=== PATIENT | female | born 1955 | race Caucasian/White ===

== ENCOUNTER → 2024-04-09 12:13 | Outpatient (REF) | payer MEDICARE, SELFPAY | LOC: HWRAD 12:13 | PROVIDERS: ATTENDING PHYSICIAN Internal Medicine Geriatric Medicine; REFERRING PHYSICIAN Internal Medicine Cardiovascular Disease | DX: E78.01 Familial hypercholesterolemia (principal); E78.00 Pure hypercholesterolemia, unspecified | CPT/HCPCS: 75571 ==

== ENCOUNTER → 2024-07-05 10:06 | Outpatient (REF) | payer MEDICARE, SELFPAY | LOC: HWRAD 10:06 | PROVIDERS: ATTENDING PHYSICIAN Internal Medicine Geriatric Medicine; REFERRING PHYSICIAN Advanced Practice Midwife | DX: Z12.31 Encounter for screening mammogram for malignant neoplasm of breast (principal); Z78.0 Asymptomatic menopausal state | CPT/HCPCS: 77063; 77067; 77080 ==

== ENCOUNTER → 2024-09-22 15:32 | Outpatient (REF) | payer MEDICARE, SELFPAY | LOC: RAD 15:32 | PROVIDERS: ATTENDING PHYSICIAN Internal Medicine Geriatric Medicine | DX: M79.641 Pain in right hand (principal); M25.531 Pain in right wrist | CPT/HCPCS: 73110; 73130 ==

== ENCOUNTER 2025-04-27 08:49 | Emergency (ER) | payer MEDICARE, SELFPAY ==
[2025-04-27 08:50] VITALS: BP 176/110
[2025-04-27 09:04] VITALS: BMI 20.3
--- NOTE | 2025-04-27 09:32 | EDRN ---
Bilateral knee abrasions cleansed w/ saline and double antibiotic ointment to mela knees. Three tiny abrasions to R hand cleanse w/ double antibiotic ointment to areas. R index finger tip and nail bed cleansed w/ saline only. ? nail involvement.
--- NOTE | 2025-04-27 09:39 | EDRN ---
Dr. Bernardo in room w/ pt
[2025-04-27] MEDS: LET TOPICAL ANESTHETIC GEL 3 ML TOPICAL (09:45)
--- NOTE | 2025-04-27 09:46 | ED.GENMED ---
History of Present Illness
General
Chief Complaint: Fall
Source: patient and spouse
Exam Limitations: none
Time Seen by Provider: 04/27/25 09:37
Nursing documentation reviewed up to this point in time: agreed with
History of Present Illness
History of Present Illness:
69-year-old female with a past medical history of hyperlipidemia who presents to the emergency room with her for evaluation after a fall. Patient was playing pickle ball and tripped and fell forward. She struck her head on the ground and
also injured her right pinky finger. She says she did not pass out. She complains of a mild headache and has a large laceration to the left forehead. She has some bruising around the left eye but denies any eye pain. She denies any significant
neck pain. She denies any back pain or rib pain. Denies any abdominal pain. She says she has some pain in the right fifth digit but denies any wrist, elbow, shoulder pain bilaterally. She has a minor abrasion of the left knee but denies any
significant pain and has been ambulatory. She is on aspirin but no other blood thinners. She says her tetanus is up-to-date within the past 5 years after accidentally lacerating her finger with a knife a few years ago.
Past History
Past History
ED Past Medical History: Hypercholesterolemia
Social History
Personal:
Review of Systems
Review of Systems
All Other Systems: ROS reviewed and negative except as documented in HPI and ROS
Respiratory: Denies trouble breathing
Cardiac: Denies chest pain
ABD/GI: Denies abdominal pain or nausea
Musculoskeletal: Reports other (Finger pain); Denies neck pain or back pain
Neurological: Reports headache; Denies dizzy
Phy Exam
Physical Exam
Physical Exam:
General: Awake, alert, oriented x3; holding ice pack on her left forehead, not in any distress
Head: Normocephalic, patient has bruising and swelling to the left forehead and periorbital region and she has a large laceration approximately 6 cm linear just above the left eyebrow
Eyes: Conjunctiva normal, EOMI, pupils equal round reactive to light bilaterally; periorbital bruising on the left as above
Throat: Airway intact, handling secretions
Neck: Trachea midline, no midline cervical spine tenderness
Back: No tenderness in thoracic or lumbar spine
Lungs: Breathing comfortably with no distress
Heart: Regular rate; no chest wall tenderness
Abd: Soft, non distended, nontender
Neuro: Cranial nerves grossly intact, speech fluid, motor and sensory grossly intact
Skin: Laceration to the forehead as above; she has superficial scratch just inferior to the left eye as well; she has a minor abrasion to the left knee and minor abrasion to the dorsum of the left fifth pinky
Extremities: Skin findings as above; on exam of the legs no significant tenderness, moving all large joints of the legs through full range of motion without pain; with specific attention to the left knee where there is a minor abrasion she has no
joint effusion or joint line tenderness; on exam of the right hand she has some mild tenderness along the right fifth digit near the DIP joint but she is able to make a fist with the right hand including full flexion of the fifth digit with only
mild pain; no tenderness in the wrist, elbow, shoulder on the right, left upper extremity atraumatic; all extremities are warm and well-perfused
Scores
Heart Failure Risk
Heart Failure Risk Score: Not Applicable
Heart Score for Chest Pain Patients
STEMI patient?: Not applicable
Withdrawal Assessment of Alcohol
Withdrawal Assessment Completed?: Not applicable
Course
Orders/Labs/Results
Orders:
Orders
04/27/25 09:43
Acetaminophen [Tylenol] 650 mg PO NOW STA
Lidocaine/Epinephrine/Tetracai [Let Topical Anesthetic Gel] 3 ml TOPICAL NOW STA
04/27/25 09:44
CT Cervical Spine W/o Iv Contr Urgent
Comment:
Reason For Exam: fall with frontal trauma
CT Facial Bones W/o Iv Contras Urgent
Comment:
Reason For Exam: fall with frontal trauma; left eye swelling/bruise
CT Head W/o Iv Contrast Urgent
Comment:
Reason For Exam: fall with frontal trauma
CR Finger(s)/thumb Min 2 Vw Rt Urgent
Comment:
Reason For Exam: right 5th finger pain s/p fall
04/27/25 09:45
Lidocaine/Epinephrine/Tetracai [Let Topical Anesthetic Gel] 3 ml .ROUTE .[facility]
Vital Signs
Initial and Last Documented VS:
Initial Vital Signs
Temp Pulse Resp BP Pulse Ox
36.8 C 98 16 176/110 98
04/27/25 08:50 04/27/25 08:50 04/27/25 08:50 04/27/25 08:50 04/27/25 08:50
Last Documented Vital Signs
Temp Pulse Resp BP Pulse Ox
36.8 C 86 16 160/97 98
04/27/25 08:50 04/27/25 10:34 04/27/25 10:34 04/27/25 10:34 04/27/25 10:34
Procedures
Laceration Closure
Left Forehead:
Status of Wound: clean
Size of Wound in cm: 6
Description of Wound Edges: sharp
Preparation: cleaned with saline
Anesthesia: Topical-LET
Revision/Debridement: minor revision
Type of Closure: layered closure, interrupted sutures and running stitch
Skin Closure Material: 6-0 nylon (4) and other (6-0 moncryl x1 running subcuticular )
Number of sutures: 5
Additional information:
Complex laceration repair with minor revision, irrigation with saline; running subcuticular stitch with 6-0 Monocryl followed by 4 simple interrupted surface sutures for better approximation, Steri-Strips applied
MDM/Problems Addressed
Differential Diagnosis Includes:
Head strike: Concussion, brain bleed, forehead contusion
Finger pain: Fracture, contusion, sprain
MDM/Problems Addressed:
69-year-old female presents to the ER for evaluation after a fall while playing pickle ball. She did strike her head and sustained bruising and large laceration to the left forehead. Only other injury is some pain in the right fifth digit.
Tetanus up-to-date. Vitals and exam as above. She is on aspirin but fortunately no other blood thinners. Will plan to check CT of the head, cervical spine, facial bones. Check x-ray of the right hand/fifth finger. Will need to irrigate and
repair laceration. Although she does have an abrasion to the knee she has no pain, no swelling, no tenderness, full range of motion�no indication for emergent knee x-ray. No other apparent injuries on secondary survey. Will provide some Tylenol
for mild headache. Reassess after the above.
CT head shows no acute abnormality, CT cervical spine no acute abnormality. CT of the face shows minor left nasal fracture. Will start prophylactic antibiotic. X-ray of the pinky shows no fracture. Abrasions were cleaned, laceration repaired as
documented in procedure note. Stable for discharge. ENT referral for nasal fracture and follow-up for suture removal discussed. All questions answered.
Acute Exacerbation and/or Progression of Chronic Illness:
Acutely hypertensive--likely stress related in the setting of acute trauma�no indication for emergent antihypertensives at this point
Acute Exacerbation and/or Progression of Chronic Illness: HTN
*Radiology
Radiology exam reviewed: preliminary read by ED provider and radiology read reviewed
*Pulse Oximetry
SaO2: 98
Oxygen Mode of Delivery: Room air
Patient hypoxic: no (98%)
*Critical Care Note
Total Time (30-74mins, 75-104mins- exclusive of procedures): Not Applicable
Data Reviewed
Source: patient and spouse
Further Testing Considered But Not Given:
Considered x-ray of the knee
ED Attending Note
-
Portions of this chart may have been created with voice recognition software.� Occasional wrong word or��sound alike� substitutions may have occurred due to the inherent limitations of voice recognition software.
Discharge Plan
Departure
Patient Disposition: Home (Routine Discharge)
Date of Disposition: 04/27/25
Time of Disposition: 12:09
Patient with high blood pressure during this ER visit?: Yes
Discharge Problem:
Forehead laceration, Abrasion of knee, Finger sprain, Fracture of nasal bone
Instructions: Wound Care (DC), Laceration Repair With Stitches (DC), Nose Fracture ED
Prescriptions:
New
amoxicillin-pot clavulanate 875-125 mg tablet
1 tab PO BID Qty: 14 0RF
No Action
atorvastatin 80 MG tablet
80 mg PO QPM
colesevelam [WelChol] 625 MG tablet
625 mg PO BID
plant stanol jose g [Cholest Off] 450 MG tablet
450 mg PO DAILY
coenzyme [id number] E 1 CAP capsule
1 cap PO DAILY
vortioxetine [Trintellix] 20 MG tablet
20 mg PO DAILY
oxycodone-acetaminophen 5 MG/325 MG tablet
1 tab PO Q4HPRN PRN (Reason: pain) Qty: 20 0RF
ibuprofen 600 MG tablet
600 mg PO Q6H PRN (Reason: pain) Qty: 20 0RF
Referrals:
Erich Dill MD [Family Provider, Internal Medicine]
Gerardo Barraza MD [Active, Otology] - Follow up in 1 week
Referral Note: For follow up of your nasal fracture
Activity Restrictions/Additional Instructions:
You were seen in the emergency room after a fall. You had a large laceration in your forehead that was repaired with stitches. You must have your stitches removed in 1 week. You can either return to the emergency room, follow-up with your primary
doctor, or go to urgent care to have the stitches removed. If you notice any signs of infection you should return to the emergency room immediately.
Thank you for visiting the Emergency Department at [facility].
1. Please schedule a follow up appointment as directed. Call first thing tomorrow morning to make an appointment.
2. If indicated, please take your medications as instructed and indicated on discharge paperwork.
3. If any of your symptoms do not improve, or persist, or become more severe within 6-12 hours, please return to the emergency department for further care.
4. Please return to the emergency department if you develop a headache, neck pain/stiffness, fever greater than 100.4F, chest pain, shortness of breath, persistent nausea, vomiting, slurred speech, difficulty walking, numbness/tingling, weakness,
signs of infection or any other symptoms that are worrisome to you.
Please call [phone] if you have any questions.
Interventions
Interventions:
*Risk Screen - Suicide Last Done: 04/27/25 09:05
*General Assessment Last Done: 04/27/25 09:05
*Neglect/Abuse Screening Last Done: 04/27/25 09:05
*ED- Fall Risk Assessment Last Done: 04/27/25 09:05
*ED COVID-19 Vaccine History Last Done: 04/27/25 09:05
ED-Musculoskeletal Assessment Last Done: 04/27/25 10:33
ED- Neurological Assessment Last Done: 04/27/25 09:10
ED-Skin Assessment Last Done: 04/27/25 09:10
Discharge Date and Time
Print Language: QATARI
[2025-04-27] MEDS: TYLENOL 650 MG PO (09:59)
[2025-04-27 10:34] VITALS: BP 160/97
--- NOTE | 2025-04-27 10:59 | EDRN ---
Pt having increased pain 5/10 and asking for pain meds. Dr. Bernardo is now w/ pt.
== END 2025-04-27 12:20 | disposition home or self-care (01) ==
LOC: EMR 08:49
PROVIDERS: EMERGENCY PHYSICIAN Emergency Medicine; FAMILY PHYSICIAN Internal Medicine Geriatric Medicine
DX: S02.2XXA Fracture of nasal bones, initial encounter for closed fracture (principal); S63.616A Unspecified sprain of right little finger, initial encounter; S01.81XA Laceration without foreign body of other part of head, initial encounter; S00.12XA Contusion of left eyelid and periocular area, initial encounter; S00.83XA Contusion of other part of head, initial encounter; S80.212A Abrasion, left knee, initial encounter; S80.211A Abrasion, right knee, initial encounter; S60.417A Abrasion of left little finger, initial encounter; S00.212A Abrasion of left eyelid and periocular area, initial encounter; R51.9 Headache, unspecified; W01.0XXA Fall on same level from slipping, tripping and stumbling without subsequent striking against object, initial encounter; Y93.69 Activity, other involving other sports and athletics played as a team or group; E78.00 Pure hypercholesterolemia, unspecified; I10 Essential (primary) hypertension; F41.9 Anxiety disorder, unspecified; Z79.82 Long term (current) use of aspirin; Z88.2 Allergy status to sulfonamides
CPT/HCPCS: 13132; 99284; 70450; 70486; 72125; 73140

== ENCOUNTER → 2025-07-15 09:07 | Outpatient (REF) | payer MEDICARE, SELFPAY | LOC: HWWDC 09:07 | PROVIDERS: ATTENDING PHYSICIAN Internal Medicine Geriatric Medicine | DX: Z12.31 Encounter for screening mammogram for malignant neoplasm of breast (principal) | CPT/HCPCS: 77063; 77067 ==

== ENCOUNTER → 2025-07-29 09:14 | Outpatient (REF) | payer MEDICARE, SELFPAY | LOC: WDC 09:14 | PROVIDERS: ATTENDING PHYSICIAN Internal Medicine Geriatric Medicine | DX: R92.8 Other abnormal and inconclusive findings on diagnostic imaging of breast (principal) | CPT/HCPCS: 76642 ==

== ENCOUNTER → 2025-08-08 08:37 | Outpatient (REF) | payer MEDICARE, SELFPAY ==
--- NOTE | 2025-08-08 13:28 | OID.BR.INTR ---
[facility]igator - Initial
- -
Date of Contact: 08/08/25
Met with patient. Patient given written information on navigator service available at [facility]. Will follow up as needed per protocol.
== END ==
LOC: WDC 08:37
PROVIDERS: ATTENDING PHYSICIAN Internal Medicine Geriatric Medicine
DX: N63.41 Unspecified lump in right breast, subareolar (principal)
CPT/HCPCS: 19083; 88305; 88341; 88342; 88360; A4648